=== PATIENT | female | born 1965 | race Caucasian/White ===

== ENCOUNTER 2022-01-23 21:06 | Emergency (ER) | payer MEDICARE, MEDICAID ==
[~2022-01-23] VITALS: Ht 175.3 cm; Wt 86.4 kg
[~2022-01-23 21:06] MED LIST: ALPR-304 PO; BISA-77 PO; CLON-528 PO; DOCU-169 PO; FLUO20CA39 PO; FROV2.5T6 PO; GABA-338 PO; MELO-83 PO; METH-35 PO; OXYC1TAB17 PO; TRAZ-91 PO
[2022-01-23 21:56] VITALS: BP 155/113
[2022-01-23] MEDS ORDERED: SILV50CR31 TOP (22:44)
[2022-01-23] MEDS ORDERED: silver sulfadiazine cream 50gm TP ONE (22:45)
--- NOTE | 2022-01-23 22:49 | NUR ---
DRESSING APPLYED TO R FOOT
== END 2022-01-23 22:58 | disposition home or self-care (01) ==
LOC: ER 21:07
DX: T25.221A Burn of second degree of right foot, initial encounter (principal); Z88.8 Allergy status to other drugs, medicaments and biological substances; Z79.899 Other long term (current) drug therapy; X11.0XXA Contact with hot water in bath or tub, initial encounter; Y93.E9 Activity, other interior property and clothing maintenance; Y92.89 Other specified places as the place of occurrence of the external cause; Y99.8 Other external cause status
CPT/HCPCS: 16000; 16020; 99283

== ENCOUNTER 2022-02-09 21:12 | Emergency (ER) | payer MEDICARE, MEDICAID ==
[~2022-02-09] VITALS: Ht 175.3 cm; Wt 86.4 kg
[2022-02-09 22:00] LABS: BASOPHILS # (AUTO) 0.1 X10'3 (0-0.2); BASOPHILS % (AUTO) 0.6 % (0-1); EOSINOPHILS # (AUTO) 0.1 X10'3 (0-0.9); EOSINOPHILS % (AUTO) 0.8 % (0-6); HEMOGLOBIN 13.5 g/dl (12.0-16.0); LYMPHOCYTES % (AUTO) 16.4 % (21-51); MEAN CORPUSCULAR HEMOGLOBIN 25.9 PG (27.0-31.0); MEAN CORPUSCULAR HGB CONC 32.9 g/dL (33.0-36.5); MEAN CORPUSCULAR VOLUME 78.8 FL (78-98); MEAN PLATELET VOLUME 7.4 FL (7.4-10.4); MONOCYTES # (AUTO) 0.7 X10'3 (0-0.9); MONOCYTES % (AUTO) 5.7 % (2-12); NEUTROPHILS # (AUTO) 9.2 X10'3 (1.8-7.7); NEUTROPHILS % (AUTO) 76.5 % (42-75); PLATELET COUNT 392 X10'3 (140-440); RED CELL DISTRIBUTION WIDTH 16.3 % (11.5-14.5); WHITE BLOOD COUNT 12.1 X10'3 (4.5-11.0)
[2022-02-09 22:19] LABS: ALANINE AMINOTRANSFERASE 49 U/L (12-78); ALKALINE PHOSPHATASE 89 IU/L (46-116); ANION GAP 17 (8-16); ASPARTATE AMINO TRANSFERASE 44 U/L (10-37); BILIRUBIN,TOTAL 0.4 MG/DL (0.1-1.0); BLOOD UREA NITROGEN 19 MG/DL (7-18); BUN/CREATININE RATIO 12.1 (6.6-38.0); CALCIUM 9.5 MG/DL (8.5-10.1); CHLORIDE 104 MMOL/L (99-107); CREATININE 1.57 MG/DL (0.40-0.90); GLUCOSE 87 MG/DL (70-104); POTASSIUM 3.3 MMOL/L (3.5-5.1); SODIUM 142 MMOL/L (135-145); TOTAL PROTEIN 8.2 G/DL (6.4-8.2); eGFR 34 ML/MIN
--- NOTE | 2022-02-09 22:28 | NUR ---
SPOKE TO DR GRANT. DOES NOT BELIEVE FLUIDS ARE NECESSARY AT THIS POINT.
[2022-02-09] MEDS ORDERED: HYDR-3965 PO (22:45)
[2022-02-09] MEDS: ketorolac trometh inj. 60 MG/2 ML VIAL IM ONE (22:56)
[2022-02-09] MEDS: acetaminophen 325mg tablet PO ONE (22:56)
[2022-02-09] MEDS: bacitracin 15gm ointment TP ONE (22:58)
[2022-02-09 23:14] VITALS: BP 162/114
== END 2022-02-09 23:16 | disposition home or self-care (01) ==
LOC: ER 21:13
DX: Z48.00 Encounter for change or removal of nonsurgical wound dressing (principal); T25.221D Burn of second degree of right foot, subsequent encounter; G89.29 Other chronic pain; Z90.710 Acquired absence of both cervix and uterus; Z98.890 Other specified postprocedural states; Z88.8 Allergy status to other drugs, medicaments and biological substances; Z79.899 Other long term (current) drug therapy; X08.8XXD Exposure to other specified smoke, fire and flames, subsequent encounter
CPT/HCPCS: 36415; 80053; 83605; 84145; 85025; 87040; 96372; 99283; J1885